=== PATIENT | female | born 1990 | race Caucasian/White ===

== ENCOUNTER 2020-05-10 00:34 | Inpatient (IN) | payer OTHER ==
[2020-05-10] MEDS ORDERED: OXYTOCIN 10 UNIT/ML 1 ML VIAL IM PRN (01:46)
[2020-05-10] MEDS ORDERED: METHYLERGONOVINE 0.2 MG/ML 1 ML AMP IM PRN (01:46)
[2020-05-10] MEDS ORDERED: CARBOPROST TROMETHAMINE 250 MCG/ML 1 ML AMP IM PRN (01:46)
[2020-05-10] MEDS ORDERED: TERBUTALINE 1 MG/ML VIAL SQ PRN (01:46)
[2020-05-10] MEDS ORDERED: LIDOCAINE 0.5% (PF) 5 MG/ML (50 ML SDV) SQ PRN (01:46)
[2020-05-10] MEDS ORDERED: LACTATED RINGERS 1,000 ML IV SCH (02:00)
[2020-05-10] MEDS ORDERED: OXYTOCIN 30 UNITS/500 ML NS 30 UNIT in SALINE 1 500ML.BAG IV SCH (02:00)
[2020-05-10] MEDS: LACTATED RINGERS 1,000 ML IV SCH ×3 (02:25→20:23)
[2020-05-10 02:38] LABS: Basophils # (A) 0.1 k/uL (0-0.2); Basophils % (A) 0 %; Eosinophils # (A) 0.1 k/uL (0-0.7); Eosinophils % (A) 1 %; HCT 36.5 % (34.0-46.0); HGB 12.4 gm/dL (11.4-16.0); Lymphocytes # (A) 2.2 k/uL (1.0-4.8); Lymphocytes % (A) 14 %; MCH 29.8 pg (25.0-35.0); MCV 87.6 fL (80.0-100.0); Mean Platelet Volume 7.5; Monocytes # (A) 0.7 k/uL (0-1.0); Monocytes % (A) 5 %; Neutrophils # (A) 12.2 k/uL (1.3-7.7); Neutrophils % (A) 79 %; Platelet Count 222 k/uL (150-450); RBC 4.17 m/uL (3.80-5.40); RDW 13.6 % (11.5-15.5); WBC 15.4 k/uL (3.8-10.6)
[2020-05-10] MEDS: BUTORPHANOL 1 MG/ML 1 ML VIAL IV PRN ×3 (02:47→06:40)
[2020-05-10] MEDS ORDERED: ROPIVACAINE 100 MG, fentaNYL (PF) 200 MCG in SODIUM CHLORIDE 0.9% 76 ML EPIDURAL ONE (09:50)
--- NOTE | 2020-05-10 10:01 | P.HPOB ---
History of Present Illness H&P Date: 05/10/20 Chief Complaint: 39-6/7 weeks, labor The patient is a 30-year-old 1 para 0 admitted at 39-6/7 weeks as established by last menstrual period and confirmed by 19 week ultrasound. She is admitted in early labor with all signs reassuring. She also is having some moderate bleeding which was thought to be heavy bloody show. Her has been otherwise entirely uncomplicated and group B strep status is negative. She is known to be Rh- and received RhoGAM at 28 weeks. Obstetrical history: 1 para 0 with current statistics listed in history of present illness. EDC of 05/11/2020 was established by last menstrual period and confirmed by 19 week ultrasound. Laboratory workup demonstrates a blood type of A- with a negative antibody screen. Rubella status is immune. The remainder of the laboratory workup was within normal limits. Second trimester Glucola was within normal limits and group B strep status is negative. Gynecologic history: Unremarkable with no history of any infections to include STDs. Review of Systems Review of systems is confined to history of present illness. Past Medical History Past Medical History: No Reported History History of Any Multi-Drug Resistant Organisms: None Reported Additional Past Surgical History / Comment(s): [place] teeth 2006 Past Anesthesia/Blood Transfusion Reactions: No Reported Reaction Past Psychological History: No Psychological Hx Reported Smoking Status: Never smoker Past Alcohol Use History: None Reported Past Drug Use History: None Reported Medications and Allergies Home Medications Medication Instructions Recorded Confirmed Type Acetaminophen [Tylenol] 325 mg PO Q4H 05/10/20 05/10/20 History Pnv No.95/Ferrous Fum/Folic AC 1 each PO DAILY 05/10/20 05/10/20 History [ Multivitamin Tablet] Allergies Allergy/AdvReac Type Severity Reaction Status Date / Time No Known Allergies Allergy Verified 05/10/20 00:40 Exam Vital Signs Temp Pulse Resp BP 05/10/20 02:08 96.9 F L 20 05/10/20 01:37 97.9 F 83 16 137/80 Intake and Output 05/09/20 05/10/20 05/10/20 22:59 06:59 14:59 Other: # Voids 1 Weight 78.925 kg In general, this is a well-developed, well-nourished white female in no acute distress after an epidural has been placed. Her heart has a regular rhythm and rate without murmur. Her lungs are clear to auscultation bilaterally in all christensen. Her abdomen is gravid, nondistended, has normal active bowel sounds, is soft, nontender, and without any palpable masses aside from uterine fundus. Her extremities are without any cyanosis, clubbing, or significant edema and are nontender to palpation bilaterally. Digital cervical examination on straights discharged to approximately 4 cm dilated, 80-90% effaced, with the vertex in presentation at -2 station. Artificial rupture of membranes is carried out dem onstrating clear fluid with moderate bloody show. Results Result Diagrams: 05/10/20 02:15 Abnormal Lab Results - Last 24 Hours (Table) 05/10/20 Range/Units 02:15 WBC 15.4 H (3.8-10.6) k/uL Neutrophils # 12.2 H (1.3-7.7) k/uL Assessment and Plan (1) Active labor at term Current Visit: Yes Status: Acute Code(s): LVG3245 - SNOMED Code(s): 45132674 (2) Rh negative status during Current Visit: Yes Status: Acute Code(s): O26.899 - OTH RELATED CONDITIONS, UNSPECIFIED TRIMESTER; Z67.91 - UNSPECIFIED BLOOD TYPE, RH NEGATIVE SNOMED Code(s): 302794866 Plan: The patient is admitted for active management of labor. She has had an epidural catheter placed for analgesia and will continue to have close maternal and surveillance and expectant management will be practiced. Should she made no progress over the next 1-2 hours, Pitocin augmentation will be added.
[2020-05-10] MEDS ORDERED: SIMETHICONE 80 MG CHEWABLE PO PRN (18:27)
[2020-05-10] MEDS ORDERED: diphenhydrAMINE 50 MG/ML 1 ML VIAL IVP PRN ×2 (18:27)
[2020-05-10] MEDS ORDERED: BENZOCAINE/MENTHOL SPRAY 1 GM/SPRAY AEROSOL TOPICAL PRN (18:27)
[2020-05-10] MEDS ORDERED: diphenhydrAMINE 25 MG CAP PO PRN (18:27)
[2020-05-10] MEDS ORDERED: HYDROCORTISONE 2.5% RECTAL CREAM 30 GM TUBE RECTAL PRN (18:27)
[2020-05-10] MEDS ORDERED: HYDROcodone/APAP 5-325MG 1 EACH TAB PO PRN (18:27)
[2020-05-10] MEDS ORDERED: LANOLIN CREAM 5 GM TUBE TOPICAL PRN (18:27)
[2020-05-10] MEDS ORDERED: diphenhydrAMINE 50 MG CAP PO PRN (18:27)
[2020-05-10] MEDS ORDERED: ACETAMINOPHEN TAB 325 MG TAB PO PRN (18:27)
[2020-05-10] MEDS ORDERED: ZOLPIDEM 5 MG TAB PO PRN (18:27)
[2020-05-10] MEDS ORDERED: OXYTOCIN 20 UNITS/1000 ML NS 1,000 ML IV SCH (18:30)
--- NOTE | 2020-05-10 18:42 | P.PROBDLV ---
Vaginal Delivery Note - . Vaginal Delivery Note: This is a 30-year-old 1 para 0 at 39-6/7 weeks that presented to labor and delivery with complaints of regular painful contractions. Patient was admitted to labor and delivery and amniotomy was performed and clear fluid was obtained. Patient was requesting epidural at this time. Epidural was placed without difficulty by the anesthesia department. Patient was begun on Pitocin for augmentation of labor. Patient made slow progress to complete began pushing and had a normal spontaneous vaginal delivery of a viable female infant at 1804, weight of 6 lbs. 11 oz. and Apgars of 7 and 8 at one and 5 minutes respectively. Midline episiotomy was performed prior to delivery in addition, as clitoral tearing was noted. The umbilical cord was doubly clamped and cut and the placenta was delivered spontaneously intact with a three-vessel cord being noted. On inspection of the patient's vaginal vault a small clitoral tear was noted along with a second-degree midline laceration. The midline episiotomy was repaired in the usual fashion with 3-0 repeat. Hemostasis was appreciated at the end of the repair. Rectal exam was performed and found to be normal in nature. Uterus is noted to be firm and below the umbilicus at this time. Estimated blood loss 200 mL. Patient and infant tolerated delivery well and are resting comfortably
[2020-05-10] MEDS: IBUPROFEN 600 MG TAB PO PRN (18:47)
[2020-05-10] MEDS: SENNOSIDES-DOCUSATE SODIUM 1 EACH TAB PO SCH (20:24)
[2020-05-11] MEDS: IBUPROFEN 600 MG TAB PO PRN ×2 (07:34→16:00)
[2020-05-11] MEDS: SENNOSIDES-DOCUSATE SODIUM 1 EACH TAB PO SCH (07:34)
[2020-05-11 08:13] VITALS: RESP 16
[2020-05-11] MEDS ORDERED: PRENATAL VIT-IRON-FOLIC ACID 1 EACH CAP PO SCH (09:00)
--- NOTE | 2020-05-11 09:08 | P.DS ---
Providers Date of admission: 05/10/20 01:42 Expected date of discharge: 05/11/20 Attending physician: Gemma Santiago Primary care physician: Stated None - Discharge Diagnosis(es) (1) (spontaneous vaginal delivery) Current Visit: Yes Status: Acute (2) Obstetric vaginal laceration with second degree perineal laceration Midline episiotomy second-degree with no extension Current Visit: Yes Status: Acute (3) Active labor at term Current Visit: Yes Status: Acute (4) Rh negative status during Current Visit: Yes Status: Acute Hospital Course: This is a 30-year-old 1 para 0 that presented to labor and delivery at 39-6/7 weeks with complaints of regular painful contractions. Patient was admitted to labor and delivery and amniotomy was performed yielding clear fluid. Patient was uncomfortable at that time and requesting epidural. Epidural was placed without difficulty by the anesthesia department. Patient was noted to have a regular contractions after epidural placement therefore Pitocin augmentation of labor was begun. Patient made slow progress to complete eventually became complete and started pushing. Patient had a normal spontaneous vaginal delivery of a viable female infant at 1804, weight of 6 lbs. 11 oz. and Apgars of 7 and 8 at one and 5 metastases respectively. A midline episiotomy was performed prior to delivery of the secondary to clitoral tearing that was noted during pushing. Patients post course has been uneventful. On this day #1 she is ambulating and voiding without difficulty. She is breast-feeding without difficulty. She states her pain is well-controlled. She would like discharge home at 24 hours if possible. Patient Condition at Discharge: Good Plan - Discharge Summary New Discharge Prescriptions: No Action Pnv No.95/Ferrous Fum/Folic AC [ Multivitamin Tablet] 1 each PO DAILY Acetaminophen [Tylenol] 325 mg PO Q4H Discharge Medication List Acetaminophen [Tylenol] 325 mg PO Q4H 05/10/20 [History] Pnv No.95/Ferrous Fum/Folic AC [ Multivitamin Tablet] 1 each PO DAILY 05/10/20 [History] Follow up Appointment(s)/Referral(s): Gemma Santiago MD [STAFF PHYSICIAN] - 6 Weeks Patient Instructions/Handouts: Vaginal Delivery (DC), Vaginal Delivery (GEN) Discharge Disposition: HOME SELF-CARE
[2020-05-11 20:36] VITALS: BP 112/65; PULSE 85; TEMP 98
== END 2020-05-11 19:15 | disposition home or self-care (01) | DRG 807 ==
LOC: FBPOP 00:34 → 4FBP 01:42
PROVIDERS: ADMIT Obstetrics & Gynecology; ATTEND Obstetrics & Gynecology
PROC: 0KQM0ZZ Repair Perineum Muscle, Open Approach (ICD-10-PCS; principal; 2020-05-10)
PROC: 00HU33Z Insertion of Infusion Device into Spinal Canal, Percutaneous Approach (ICD-10-PCS; principal; 2020-05-10)
PROC: 10E0XZZ Delivery of Products of Conception, External Approach (ICD-10-PCS; principal; 2020-05-10)
PROC: 3E0R3BZ Introduction of Anesthetic Agent into Spinal Canal, Percutaneous Approach (ICD-10-PCS; principal; 2020-05-10)
PROC: 0W8NXZZ Division of Female Perineum, External Approach (ICD-10-PCS; principal; 2020-05-10)
DX: O26.893 Other specified pregnancy related conditions, third trimester (principal); Z37.0 Single live birth; O70.1 Second degree perineal laceration during delivery; Z3A.39 39 weeks gestation of pregnancy; Z67.91 Unspecified blood type, Rh negative
CPT/HCPCS: 59025; 85025; 86850; 86900; 86901; 99213

== ENCOUNTER 2022-07-20 10:47 | Inpatient (IN) | payer OTHER ==
[2022-07-23] MEDS ORDERED: TRANEXAMIC ACID IN NACL,ISO-OS 1,000 MG in EMPTY BAG 1 BAG IV PRN (06:47)
[2022-07-23] MEDS ORDERED: TERBUTALINE 1 MG/ML VIAL SQ PRN (06:47)
[2022-07-23] MEDS ORDERED: METHYLERGONOVINE 0.2 MG/ML 1 ML AMP IM PRN (06:47)
[2022-07-23] MEDS ORDERED: CARBOPROST TROMETHAMINE 250 MCG/ML 1 ML AMP IM PRN (06:47)
[2022-07-23] MEDS ORDERED: LIDOCAINE 0.5% (PF) 5 MG/ML (50 ML SDV) SQ PRN (06:47)
[2022-07-23] MEDS ORDERED: miSOPROStoL 200 MCG TAB PO PRN (06:47)
[2022-07-23 06:56] LABS: Basophils # (A) 0.1 k/uL (0-0.2); Basophils % (A) 0 %; Eosinophils # (A) 0.1 k/uL (0-0.7); Eosinophils % (A) 1 %; HCT 34.6 % (34.0-46.0); Lymphocytes # (A) 2.4 k/uL (1.0-4.8); Lymphocytes % (A) 18 %; MCH 29.8 pg (25.0-35.0); MCHC 34.7 g/dL (31.0-37.0); MCV 85.9 fL (80.0-100.0); Monocytes # (A) 0.7 k/uL (0-1.0); Monocytes % (A) 5 %; Neutrophils # (A) 9.8 k/uL (1.3-7.7); Neutrophils % (A) 74 %; Platelet Count 238 k/uL (150-450); RBC 4.02 m/uL (3.80-5.40); RDW 14.1 % (11.5-15.5); WBC 13.3 k/uL (3.8-10.6)
[2022-07-23] MEDS ORDERED: LACTATED RINGERS 1,000 ML IV SCH ×2 (07:00)
[2022-07-23] MEDS ORDERED: OXYTOCIN 30 UNITS/500 ML NS 30 UNIT in SALINE 1 500ML.BAG IV SCH (07:00)
--- NOTE | 2022-07-23 08:01 | P.HPOB ---
History of Present Illness H&P Date: 07/23/22 Chief Complaint: Here for elective induction of labor, postdates This is a 32-year-old 2 para 1001 EDC 07/20/2022 at 40-3/7 weeks' gestation who presents for induction of labor with favorable multiparous cervix. Fetus is been active throughout the . She is having mild irregular contractions but denies fluid leakage or vaginal bleeding. Past medical history is negative. Past surgical history wisdom teeth extracted. Current medications vitamin daily, vitamin D daily. ALLERGIES none known. Family history significant for dome her, unexplained, patient's sibling. Reproductive history vaginal delivery 2020 liveborn female , 6 lbs. 11 oz., unremarkable. Social history patient has never been a smoker, she denies alcohol or drug use. She is and her Oli is present and involved. history is significant for negative group B strep cultures. One-hour Glucola elevated, 3 hour GTT within normal limits. Blood type A-, rubella status immune, urine culture, hepatitis B, HIV testing, gonorrhea and chlamydia cultures all negative. On exam patient is 5 foot 4 inches, 176 pounds, blood pressure 122/80, vital signs are stable and she is afebrile. Cervix is I've centimeters dilated, 70% effaced, -2 station, vertex presentation, soft, anterior. Artificial amniorrhexis reveals clear fluid. heart rate is consistent with reactive NST. Impression: 40-3/7 weeks intrauterine , favorable multiparous cervix, here for induction of labor, all signs reassuring. Plan: Continue close maternal and surveillance. Oxytocin per hospital protocol. Analgesic options reviewed. Anticipate normal spontaneous vaginal delivery. Review of Systems Constitutional: Reports as per HPI Past Medical History Past Medical History: No Reported History History of Any Multi-Drug Resistant Organisms: None Reported Additional Past Surgical History / Comment(s): [place] teeth 2006 Past Anesthesia/Blood Transfusion Reactions: No Reported Reaction Past Psychological History: No Psychological Hx Reported Smoking Status: Never smoker Past Alcohol Use History: None Reported Past Drug Use History: None Reported - Past Family History Mother Family Medical History: No Reported History Medications and Allergies Home Medications Medication Instructions Recorded Confirmed Type Acetaminophen [Tylenol] 325 mg PO Q4H 05/10/20 07/23/22 History Pnv No.95/Ferrous Fum/Folic AC 1 each PO DAILY 05/10/20 07/23/22 History [ Multivitamin Tablet] Allergies Allergy/AdvReac Type Severity Reaction Status Date / Time No Known Allergies Allergy Verified 05/10/20 00:40 Exam Vital Signs Temp Pulse Resp BP Pulse Ox 07/23/22 06:33 97.1 F L 80 16 122/80 99 Intake and Output 07/22/22 07/23/22 07/23/22 22:59 06:59 14:59 Other: Weight 79.832 kg See dictation under HPI please Results Result Diagrams: 07/23/22 06:32 Abnormal Lab Results - Last 24 Hours (Table) 07/23/22 Range/Units 06:32 WBC 13.3 H (3.8-10.6) k/uL Neutrophils # 9.8 H (1.3-7.7) k/uL Assessment and Plan Assessment: 40-3/7 weeks intrauterine , here for elective induction of labor with favorable multiparous cervix. All signs reassuring. Plan: Continue close maternal and surveillance. Oxytocin per hospital protocol. Analgesic options reviewed. Anticipate normal spontaneous vaginal delivery. Time with Patient: Less than 30
[2022-07-23] MEDS ORDERED: fentaNYL (PF) 50 MCG/ML 5 ML AMP ONE (09:02)
[2022-07-23] MEDS ORDERED: SODIUM CHLORIDE 0.9% 100 ML BAG ONE (09:02)
[2022-07-23] MEDS ORDERED: ROPIVACAINE 5 MG/ML 20 ML AMPULE ONE (09:02)
[2022-07-23] MEDS ORDERED: diphenhydrAMINE ELIXIR 25 MG/10 ML CUP PO PRN (11:44)
[2022-07-23] MEDS ORDERED: SIMETHICONE 80 MG CHEWABLE PO PRN (11:44)
[2022-07-23] MEDS ORDERED: diphenhydrAMINE 50 MG/ML 1 ML VIAL IVP PRN ×2 (11:44)
[2022-07-23] MEDS ORDERED: diphenhydrAMINE 50 MG CAP PO PRN (11:44)
[2022-07-23] MEDS ORDERED: HYDROCORTISONE 2.5% RECTAL CREAM 30 GM TUBE RECTAL PRN (11:44)
[2022-07-23] MEDS ORDERED: BENZOCAINE/MENTHOL SPRAY 1 GM/SPRAY AEROSOL TOPICAL PRN (11:44)
[2022-07-23] MEDS ORDERED: ACETAMINOPHEN TAB 325 MG TAB PO PRN (11:44)
[2022-07-23] MEDS ORDERED: LANOLIN CREAM 5 GM TUBE TOPICAL PRN (11:44)
[2022-07-23] MEDS ORDERED: ZOLPIDEM 5 MG TAB PO PRN (11:44)
[2022-07-23] MEDS ORDERED: diphenhydrAMINE 25 MG CAP PO PRN (11:44)
--- NOTE | 2022-07-23 11:44 | P.PROBDLV ---
Vaginal Delivery Note - . Vaginal Delivery Note: This is a 32-year-old female 2 para 1001 EDC 07/20/2022 at 40-3/7 weeks' gestation who presented earlier this morning for induction with favorable multiparous cervix. is remarkable for negative group B strep cultures, blood type A negative, rubella status immune. Please see dictated history and physical for details. Artificial amniorrhexis revealed clear fluid. Epidural was placed per her request. Oxytocin was titrated per hospital protocol. Patient became completely dilated at 1055 hrs. heart tones were reassuring throughout the first and second stages of labor. Perineal body was draped and prepped in the usual sterile fashion. With excellent maternal expulsive efforts the infant's head delivered occiput anterior, and he restituted accordingly. There was a tight nuchal cord 1 that was reduced on the perineal body. The right or anterior shoulder was then delivered from underneath the pubic symphysis at which time the oropharynx, external nares, and nasopharynx were all bulb suctioned thoroughly. Patient was officially delivered of a liveborn male at 1229 hrs. Umbilical cord was doubly clamped and ligated, he was handed to waiting nurses for evaluation where scores of 9 and 9 at one and 5 minutes respectively were given. Placenta delivered spontaneously, it was inspected and noted to be intact with trivascular cord at 1132 hours. Careful inspection of the cervix, vagina, perineum, periurethral, and perirectal areas reveals a very small first- degree perineal laceration easily repaired in the usual fashion using repeat suture. Total estimated blood loss 250 mL's. weighs 8 lbs. 1 oz. or 3660 g. She is requesting circumcision for her infant son.
[2022-07-23] MEDS ORDERED: ROPIVACAINE 100 MG, fentaNYL (PF). 200 MCG in SODIUM CHLORIDE 0.9% 76 ML EPIDURAL ONE (13:13)
[2022-07-23] MEDS ORDERED: Rhogam IMMUNE GLOBULIN 1,500 UNIT/1 ML IM ONE (15:31)
[2022-07-23] MEDS: IBUPROFEN 600 MG TAB PO SCH ×2 (16:14→18:17)
[2022-07-23] MEDS: SENNOSIDES-DOCUSATE SODIUM 1 EACH TAB PO SCH (21:23)
[2022-07-24] MEDS: IBUPROFEN 600 MG TAB PO SCH ×2 (05:34→05:36)
[2022-07-24 08:38] VITALS: BP 125/80; PULSE 88; RESP 14; TEMP 98.2
[2022-07-24] MEDS: SENNOSIDES-DOCUSATE SODIUM 1 EACH TAB PO SCH (08:42)
--- NOTE | 2022-07-24 10:08 | P.DS ---
Providers Date of admission: 07/23/22 06:05 Expected date of discharge: 07/24/22 Attending physician: Gemma Santiago Primary care physician: Stated None Hospital Course: This is a 32-year-old female 2 para 1001 EDC 07/20/2022 at 40-3/7 weeks' gestation who presented for induction with favorable multiparous cervix, postdates. Fetus is been active throughout the . Blood type is A-, group B strep cultures negative, rubella status immune. Please see dictated history and physical for details. Artificial amniorrhexis revealed clear fluid. Epidural was placed per her request. Oxytocin was started per hospital protocol. Patient went on to deliver vaginally a liveborn male with scores of 9 and 9 at one and 5 minutes respectively. There was a small first-degree laceration easily repaired, a nuchal cord 1 reduced, and an estimated blood loss of 250 mL's. Infant weight 8 lbs. 1 oz. or 3660 g please see dictated delivery note for details. This morning the patient is doing well. She is voiding, ambulating, passing flatus without difficulty. Vital signs are stable and she is afebrile. Fundus is firm and in the midline, symmetric and 18 week size. Extremities are negative for edema. Breast-feeding is going well. Circumcision has been performed. Patient is judged to be in very good condition for discharge home. She will follow-up with me in the office in 6 weeks. She is reminded no inte rcourse, tampons or douching. She will use [id number] Advil or Aleve, or Motrin as needed for pain. She will call with any fevers shakes or chills, foul smelling or copious lochia, with the passage of large blood clots, with any pain not alleviated by [id number] products, or indeed with any concerns. We have briefly discussed contraceptive options and we will review this further in the office. Assessment: Doing well first day Patient Condition at Discharge: Good Plan - Discharge Summary Discharge Rx Participant: No New Discharge Prescriptions: No Action Pnv No.95/Ferrous Fum/Folic AC [ Multivitamin Tablet] 1 each PO DAILY Acetaminophen [Tylenol] 325 mg PO Q4H Discharge Medication List Acetaminophen [Tylenol] 325 mg PO Q4H 05/10/20 [History] Pnv No.95/Ferrous Fum/Folic AC [ Multivitamin Tablet] 1 each PO DAILY 05/10/20 [History] Follow up Appointment(s)/Referral(s): Gemma Santiago MD [STAFF PHYSICIAN] - 6 Weeks Discharge Disposition: HOME SELF-CARE
== END 2022-07-24 12:28 | disposition home or self-care (01) | DRG 807 ==
LOC: 4FBP 07-23 06:05
PROVIDERS: ADMIT Obstetrics & Gynecology; ATTEND Obstetrics & Gynecology
PROC: 10E0XZZ Delivery of Products of Conception, External Approach (ICD-10-PCS; principal; 2022-07-23)
PROC: 0HQ9XZZ Repair Perineum Skin, External Approach (ICD-10-PCS; 2022-07-23)
PROC: 4A0HXCZ Measurement of Products of Conception, Cardiac Rate, External Approach (ICD-10-PCS; 2022-07-23)
PROC: 10907ZC Drainage of Amniotic Fluid, Therapeutic from Products of Conception, Via Natural or Artificial Opening (ICD-10-PCS; 2022-07-23)
PROC: 3E033VJ Introduction of Other Hormone into Peripheral Vein, Percutaneous Approach (ICD-10-PCS; 2022-07-23)
DX: O26.893 Other specified pregnancy related conditions, third trimester (principal); Z37.0 Single live birth; O48.0 Post-term pregnancy; O70.0 First degree perineal laceration during delivery; O71.82 Other specified trauma to perineum and vulva; O69.1XX0 Labor and delivery complicated by cord around neck, with compression, not applicable or unspecified; Z3A.40 40 weeks gestation of pregnancy; Z67.11 Type A blood, Rh negative
CPT/HCPCS: 85025; 85461; 86850; 86900; 86901